=== PATIENT | male | born 1995 ===

== ENCOUNTER 2020-01-24 10:45 | Emergency (ER) | payer SELFPAY ==
[~2020-01-24 10:45] MED LIST: 50% Dextrose in Water 50 ML Syringe IVPUSH ONE; Calcium Chloride 10% 1 GM/10 ML Syringe IVPUSH ONE
--- NOTE | 2020-01-24 10:54 | EDM.PDOC ---
ED HPI GENERAL MEDICAL PROBLEM - General Chief Complaint: CPR in Progress Stated Complaint: EMS ARRIVAL Time Seen by Provider: 01/24/20 10:54 Source of Information: Reports: EMS History Limitations: Reports: Physical Impairment - History of Present Illness INITIAL COMMENTS - FREE TEXT/NARRATIVE: This is a 24-year-old male with unknown past medical history presenting in cardiac arrest. He arrives to the emergency department by ambulance. He was reportedly seen normal earlier in the morning. Housemates found him unconscious and unresponsive. He did not have a witnessed collapse - down time is unknown. The ambulance was called. When paramedics arrived, they initiated CPR. He was noted to be in asystole. He was endotracheally intubated. Paramedics administered 5 doses of epinephrine, 2 mg of naloxone, sodium bicarbonate, without any response. They continued chest compressions. An intraosseous catheter was placed. Paramedics performed CPR for approximately 20 minutes on scene and en route to the hospital. At no point did he developed ventricular fibrillation or ventricular tachycardia and he was not defibrillated. Upon arrival to the emergency department, the patient is pulseless and apneic, with chest compressions ongoing. ROS: Unable to obtain due to clinical condition Past medical history: Unable to obtain Surgical history: Unable to obtain Social history: Unable to obtain Family history: Unable to obtain PHYSICAL EXAM Vital signs reviewed. Nursing notes reviewed. Constitutional: Unconscious, unresponsive. Head: Normocephalic, atraumatic. Eyes: Pupils 6 mm and fixed, no scleral icterus. Ears, Nose, Throat: Endotracheally intubated Cardiovascular: Pulseless Pulmonary: Apneic, BVM ventilations ongoing, endotracheally intubated. Abdomen/GI: Nondistended. Musculoskeletal: No deformities. Integumentary: Cool, dry. Neurologic: Unresponsive. Psychiatric: Unable to assess. This patient was seen and evaluated during the 2019 SARS-CoV-2 novel coronavirus pandemic period. Community viral transmission is ongoing at time of this encounter and the emergency department is operating under pandemic response procedures. - Related Data Allergies Allergy/AdvReac Type Severity Reaction Status Date / Time Unable to Assess Allergy Unverified 01/24/20 10:59 Home Meds: Home Meds . [Unable to Verify Home Med List] 01/24/20 [History] ED ROS GENERAL - Review of Systems Review Of Systems: See Below ED EXAM, CPR - Physical Exam Exam: See Below ED ULTRASOUND - Cardiac Indication: cardiac arrest Exam type: focused transthoracic Findings: other (Absent cardiac motion, no pericardial effusion.) Impression: absent cardiac activity Images archived: No Course - Vital Signs Text/Narrative:: This is a 24-year-old male presenting in cardiac arrest. Downtime unknown, collapse was not witnessed. He arrived to the hospital with CPR in progress. The patient was transferred to the emergency department bed. Initially noted to be in an agonal rhythm with a rate less than 20. We placed an end-tidal capnography probe and noted an initial ET CO2 reading of 9 with good waveform. We did note bilateral sliding signs by [id number] ultrasound. The STANLEY device was in place providing chest compressions. We did pause compressions to obtain a subxiphoid view showing no cardiac motion and no pericardial effusion. We administered 1 g of calcium chloride and 25 g of dextrose 50%. I see no evidence of trauma. There is no evidence of a dialysis fistula or any surgical scars. We continued chest compressions and resuscitation to allow medications to circulate. On multiple checks the patient continued to be in an agonal rhythm and did not develop VT or VF at any point to warrant defibrillation. There is no change in clinical condition. I did repeat the [id number] cardiac ultrasound and noted no cardiac movement. At this point we cannot identify any obvious reversible causes. Unfortunately the patient was unable to be resuscitated from his cardiac arrest. Time of was declared as per the nursing documentation. Departure - Departure Time of Disposition: 11:29 Disposition: 20 Condition: Critical Clinical Impression: Cardiac arrest - Discharge Information Referrals: PCP,None [Primary Care Provider] - Forms: ED Department Discharge Critical Care Note - Critical Care Note Total Time (mins): 30 Comments: Critical care time is exclusive of billable procedures and the time to perform these procedures. Critical care time was used to prevent vital system organ failure and deterioration. Critical care time includes bedside management and high-complexity decision making requiring my highest level of mental preparedness and attention. This includes reviewing the patient's chart and prior medical records, ordering and reviewing interpreting laboratory studies and imaging results, interpretation of vital signs and EKG, pulse oximetry, and discussion with the admitting team or accepting facility, discussions with EMS and nursing staff, and discussions with any family members if available. 30 minutes of critical care for cardiac arrest including resuscitation, discussions with EMS and law enforcement, and multiple discussions with family members both in person and by telephone.
== END 2020-01-24 15:21 | disposition expired ==
LOC: MW.ED 10:45
DX: I46.9 Cardiac arrest, cause unspecified (principal)
CPT/HCPCS: 92950; 96374; 99285-25; 99291